=== PATIENT | male | born 1985 | race African-American/Black ===

== ENCOUNTER 2022-02-02 17:13 | Emergency (ER) | payer MEDICAID, OTHER ==
[~2022-02-02] VITALS: Ht 167.6 cm; Wt 84.4 kg
[2022-02-02] MEDS ORDERED: AMOX875T2 PO (21:30)
[2022-02-02] MEDS ORDERED: BACITRACIN OINTMENT 30GM TUBE TOP ONE (21:30)
[2022-02-02] MEDS ORDERED: DERMABOND TOPICAL SKIN ADHESIVE TOP ONE (22:20)
[2022-02-02] MEDS ORDERED: BACI500O8 TOP (22:23)
[2022-02-02 22:35] VITALS: BP 110/58
== END 2022-02-02 22:38 | disposition home or self-care (01) ==
LOC: M ED 17:13
DX: S01.21XA Laceration without foreign body of nose, initial encounter (principal); R04.0 Epistaxis; W22.8XXA Striking against or struck by other objects, initial encounter; W01.0XXA Fall on same level from slipping, tripping and stumbling without subsequent striking against object, initial encounter; F17.200 Nicotine dependence, unspecified, uncomplicated; Y92.009 Unspecified place in unspecified non-institutional (private) residence as the place of occurrence of the external cause; Y93.9 Activity, unspecified; Y99.9 Unspecified external cause status